=== PATIENT | female | born 1950 | race Caucasian/White ===

== ENCOUNTER 2021-04-12 16:20 | Emergency (ER) | payer MEDICARE, SELFPAY ==
[2021-04-12 16:28] VITALS: BP 180/96; PULSE 104; RESP 16; TEMP 36.4; O2SAT 100
--- NOTE | 2021-04-12 16:34 | ED.GENADULT ---
HPI - General Adult General Chief complaint: Headache Stated complaint: lt side facial numbness/elevated bp Time Seen by Provider: 04/12/21 16:36 Source: patient and RN notes reviewed Mode of arrival: ambulatory Limitations: no limitations History of Present Illness HPI narrative: 71-year-old female presents with concern for 6-day history of intractable headache, 2-day history of left-sided facial numbness and left blurry vision. She reports on Wednesday prior to her headache starting she received a cortisone shot in her left knee. Reports throughout the week at one point she had a flushed face. Reports she has been taking her blood pressure, it was elevated today. Reports she has a history of hypertension. She denies any difficulty swallowing, speaking, abnormal gait. Denies weakness in any extremity. Denies nausea or vomiting. Does not describe this headache as the worst headache of her life.. MD complaint: Facial numbness Related Data Home Medications Medication Instructions Recorded Confirmed albuterol sulfate 2 puff INHALATION PRN PRN 04/12/21 04/12/21 atorvastatin 20 mg PO DAILY 04/12/21 04/12/21 calcium carbonate [Calcium 600] 600 mg PO DAILY 04/12/21 04/12/21 carvedilol 12.5 mg PO BID 04/12/21 04/12/21 cholecalciferol (vitamin D3) 125 mcg PO WEEKLY 04/12/21 04/12/21 levothyroxine 50 mcg PO DAILY 04/12/21 04/12/21 loratadine 10 mg PO DAILY 04/12/21 04/12/21 lorazepam 0.5 mg PO PRN PRN 04/12/21 04/12/21 ej-bi-aunn-FA-Ca carb-vit K 1 tablet PO DAILY 04/12/21 04/12/21 [Women's Multivitamin] omeprazole 20 mg PO DAILY 04/12/21 04/12/21 vitamin A-vitamin C-vit E-min 1 tablet PO DAILY 04/12/21 04/12/21 [Ocuvite] vortioxetine [Trintellix] 10 mg PO DAILY 04/12/21 04/12/21 zolpidem 10 mg PO PRN PRN 04/12/21 04/12/21 Allergies Allergy/AdvReac Type Severity Reaction Status Date / Time levofloxacin Allergy Mild achilles Verified 04/12/21 16:26 tendon issues thimerosal Allergy Unknown not known Verified 04/12/21 16:26 Review of Systems Review of Systems: CONSTITUTIONAL: Denies malaise, chills, sweats, or fever. EYES: Reports left-sided blurry vision ENT: Denies rhinorrhea, congestion, sinus pain, otalgia or sore throat. CARDIOVASCULAR: Denies chest pain, palpitations, or edema. RESPIRATORY: Denies cough or dyspnea. GASTROINTESTINAL: Denies nausea, vomiting MUSCULOSKELETAL: Denies myalgia. NEUROLOGIC: Denies weakness. Reports 6-day history of headache, left-sided facial numbness PSYCHIATRIC: Denies anxiety or depression. All systems reviewed & are unremarkable except as noted in HPI and below PMFSH Comments At time of signature, agree with nursing past medical, surgical, social and family history. There is no relevant family history pertinent to the presenting complaint Exam Narrative: GENERAL: Well-appearing, well-nourished, and in no acute distress. HEAD: Normocephalic, atraumatic. EYES: PERRLA, sclera clear, and EOMI. No nystagmus. ENT: Nares clear, turbinates pink, no rhinorrhea or epistaxis. Mucous membranes moist. TM pearly jain with sharp light reflex bilaterally; no tragal tenderness. Oropharynx without erythema or lesions. Tonsils not enlarged and without exudate. NECK: Supple. No lymphadenopathy. No jugular venous distension, thyromegaly, or carotid bruits. Carotids were easily palpable bilaterally. CHEST: No respiratory distress. Clear to auscultation. No bony deformities, no asymmetry. Speaks in full sentences. HEART: Regular rate and rhythm. No murmur heard. Normal peripheral pulses. ABDOMEN: Soft, nontender, nondistended, normal active bowel sounds, no palpable masses. EXTREMITIES: Normal range of motion. No edema. Normal strength and sensation. SKIN: Warm, dry, no visible rash. NEURO: Alert and oriented x3. No focal deficits. Cranial nerves II through XII grossly intact PSYCH: Normal mood and affect Course Course Emergency Course: Patient is aware of, understands and agrees to reasons to be napoles
[2021-04-12 16:58] VITALS: BP 160/104; PULSE 80; RESP 16
--- NOTE | 2021-04-12 17:11 | PC.NURSE ---
1650 Bilateral visual chart check with glasses 20/70.
== END 2021-04-12 16:58 | disposition short-term general hospital (02) ==
PROVIDERS: Emergency Provider Nurse Practitioner; PCP Internal Medicine
DX: R20.0 Anesthesia of skin (principal); I10 Essential (primary) hypertension
CPT/HCPCS: 99213; G0463

== ENCOUNTER → 2021-09-10 14:40 | Outpatient (CLI) | payer MEDICARE, SELFPAY ==
--- NOTE | ~2021-09-10 | MM_ITS ---
EXAMINATION: MM screening [facility] BI w codie HISTORY: Screening mammogram TECHNIQUE: Craniocaudal and mediolateral oblique 3-D tomosynthesis images were obtained and synthetic 2-D images were generated. CAD analysis was submitted and interpreted. COMPARISON: 06/21/2019, 07/15/2017, 12/24/2015 bilateral screening mammogram examinations BREAST PARENCHYMAL COMPOSITION: The breasts are almost entirely fatty. FINDINGS: Scattered benign calcifications on the right are again noted. Stable benign appearing small intramammary lymph node in the outer mid left breast. There is no evidence of suspicious mass, calci fication, or architectural distortion to suggest malignancy in either breast. There has been no suspi cious interval change. IMPRESSION: 1. No mammographic evidence of malignancy. 2. Recommend routine screening mammography in one year. BI-RADS Category 2: Benign finding(s). Reviewed, dictated and finalized at location A. W
== END ==
PROVIDERS: PCP Internal Medicine; Visit Provider Internal Medicine
DX: Z12.31 Encounter for screening mammogram for malignant neoplasm of breast (principal)
CPT/HCPCS: 77063; 77067

== ENCOUNTER → 2021-10-01 13:04 | Outpatient (CLI) | payer MEDICARE, SELFPAY ==
--- NOTE | ~2021-10-01 | DEXA_ITS ---
Bone Density Report Name: BRIANNA WICK Age: 71 Sex: Female Ethnicity: White Date of : 1950 Indication: postmenopausal; screening for osteoporosis; height loss; hysterectomy; Referring Provider: PAGE, JUANCARLOS Larson Study: Bone densitometry was performed. Exam Date: October 01, 2021 Accession number: [id number] Bone Density: Region BMD T-score Z-score Classification AP Spine (L1-L4) 0.980 -0.6 1.6 Normal Femoral Neck (Left) 0.614 -2.1 -0.2 Osteopenia Total Hip (Left) 0.799 -1.2 0.4 Osteopenia Femoral Neck (Right) 0.637 -1.9 0.0 Osteopenia Total Hip (Right) 0.785 -1.3 0.3 Osteopenia Total Hip Mean 0.792 -1.3 0.4 Osteopenia World Health Organization criteria for BMD impression classify patients as: Normal (T-score at or above -1.0), Osteopenia (T-score between -1.0 and -2.5), or Osteoporosis (T-score at or below -2.5). 10-year Fracture Risk(1): Major Osteoporotic Fracture 12% Hip Fracture 2.4% Reported Risk Factors: [place] (), Neck BMD=0.614, BMI=33.4 (1) FRAX(R) Version 3.08. Fracture probability calculated for an untreated patient. Fracture probability may be lower if the patient has received treatment. Previous Exams: Region Exam Age BMD T-score BMD Change BMD Change Date g/cm2 vs Baseline vs Previous AP Spine(L1-L4) 10/01/2021 71 0.980 -0.6 -0.002 -0.002 06/21/2019 69 0.981 -0.6 Total Hip(Left) 10/01/2021 71 0.799 -1.2 -0.029* -0.029* 06/21/2019 69 0.828 -0.9 Total Hip(Right) 10/01/2021 71 0.785 -1.3 -0.031* -0.031* 06/21/2019 69 0.816 -1.0 *Denotes significance at 95% confidence level, LSC for AP Spine = 0.022 g/cm2, LSC for Total Hip = 0.027 g/cm2 Clinical Information Provided by Patient: Has used the following medications: Vitamin D, Calcium, MTV Has the following medical conditions: Hysterectomy Patient maximum height was 66.5 Menopause Age: 49 No regular weight bearing exercise Drinks caffeinated beverages Onset of menses at age 14 Number of children 3 Impression: The patient has low bone mass, based on the Left Femoral Neck T-score. The patient has an estimated ten-year risk of hip fracture of 2.4% and an estimated ten-year risk of major fracture of 12%, based on the WHO FRAX algorithm. The BMD for the Total Hip(Left) decreased, changing by -0.029 since the last DXA exam. The BMD for the Total Hip(Right) decreased, changing by -0.031 since
== END ==
PROVIDERS: PCP Internal Medicine; Visit Provider Internal Medicine
DX: M85.851 Other specified disorders of bone density and structure, right thigh (principal); M85.852 Other specified disorders of bone density and structure, left thigh
CPT/HCPCS: 77080

== ENCOUNTER → 2022-11-23 10:19 | Outpatient (CLI) | payer MEDICARE, SELFPAY ==
--- NOTE | ~2022-11-23 | MM_ITS ---
EXAMINATION: MM screening [facility] BI w codie HISTORY: Screening mammogram TECHNIQUE: Craniocaudal and mediolateral oblique 3-D tomosynthesis images were obtained and synthetic 2-D images were generated. CAD analysis was submitted and interpreted. COMPARISON: 09/10/2021, 06/21/2019, 07/15/2017 BREAST PARENCHYMAL COMPOSITION: The breasts are almost entirely fatty. FINDINGS: Scattered benign-appearing calcifications are present. A stable intramammary lymph node is also noted in the left breast. No suspicious mass, calcification, or architectural distortion are lizbeth ntified in either breast to suggest malignancy. There has been no suspicious interval change. IMPRESSION: 1. No mammographic evidence of malignancy. 2. Recommend routine screening mammography in one year. BI-RADS Category 2: Benign finding(s). Reviewed, dictated and finalized at location A.
== END ==
PROVIDERS: PCP Internal Medicine; Visit Provider Internal Medicine
DX: Z12.31 Encounter for screening mammogram for malignant neoplasm of breast (principal)
CPT/HCPCS: 77063; 77067

== ENCOUNTER 2024-04-18 13:59 | Outpatient (CLI) | payer MEDICARE, OTHER, SELFPAY ==
--- NOTE | ~2024-04-18 | MM_ITS ---
EXAMINATION: MM screening [facility] BI w codie HISTORY: Screening TECHNIQUE: Craniocaudal and mediolateral oblique 3-D tomosynthesis images were obtained and synthetic 2-D images were generated. CAD analysis was submitted and interpreted. COMPARISON: Comparison to multiple prior studies sequentially, with oldest reviewed study dated 01/2016. BREAST PARENCHYMAL COMPOSITION: Not dense: There are scattered areas of fibroglandular density. FINDINGS: There is no evidence of suspicious mass, calcification, or architectural distortion to sugg est malignancy in either breast. There has been no suspicious interval change. IMPRESSION: 1. No mammographic evidence of malignancy. 2. Recommend routine screening mammography in one year. BI-RADS Category 1: Negative Reviewed, dictated and finalized at location B.
== END 2024-04-18 14:00 | disposition home or self-care (01) ==
PROVIDERS: PCP Internal Medicine; Visit Provider Obstetrics & Gynecology
DX: Z12.31 Encounter for screening mammogram for malignant neoplasm of breast (principal)
CPT/HCPCS: 77063; 77067

== ENCOUNTER 2025-04-20 10:32 | Outpatient (CLI) | payer MEDICARE, OTHER, SELFPAY ==
--- NOTE | ~2025-04-20 | MM_ITS ---
EXAMINATION: MM screening [facility] BI w codie HISTORY: Screening TECHNIQUE: Craniocaudal and mediolateral oblique 3-D tomosynthesis images were obtained and synthetic 2-D images were generated. CAD analysis was submitted and interpreted. COMPARISON: Comparison to multiple prior studies sequentially, with oldest reviewed study dated 12/24/2015. BREAST PARENCHYMAL COMPOSITION: Not dense: There are scattered areas of fibroglandular density. FINDINGS: There is no evidence of suspicious mass, calcification, or architectural distortion to suggest malignancy in either breast. There has been no suspicious interval change. IMPRESSION: 1. No mammographic evidence of malignancy. 2. Recommend routine screening mammography in one year. BI-RADS Category 1: Negative Reviewed, dictated and finalized at location B.
== END 2025-04-20 10:33 | disposition home or self-care (01) ==
LOC: MICIMG 10:33
PROVIDERS: PCP Internal Medicine; Visit Provider Internal Medicine
DX: Z12.31 Encounter for screening mammogram for malignant neoplasm of breast (principal)
CPT/HCPCS: 77063; 77067

== ENCOUNTER 2025-07-11 11:42 | Emergency (ER) | payer MEDICARE, OTHER, SELFPAY ==
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
--- OUTSIDE RECORDS SUMMARY | 2025-07-11 11:45 | XMS_ITS | Encounter Summary ---
Author Organization [facility] Address [address] [place], [place] [address] [address] Care Team Providers Care Sas Analyst Name Role Phone Tyrone Mckeon MD Primary Care Provider [phone] Encounter Details Date Type Department Care Team (Late Contact [facility]) Description 04/09/2020 Lab Requisition [facility] Care DermPath Lab [address] [facility] [place] [phone] Gabby Ross MD [address] [facility] 3 [place] [address] Social History Tobacco Use Types Packs/Day Years Used Date Smoking Tobacco: Never Smokeless Tobacco: Never Alcohol Use Standard Drinks/Week Comments No 0 (1 standard drink = 0.6 oz pur e alcohol) Comments No Sex and Gender Information Value Date Recorded Sex Assigned at Female 07/30/2023 9:00 AM POT RUNNER Legal Sex Female 1:44 PM POT RUNNER Gender Identity Female 07/30/2023 9:00 AM POT RUNNER Sexual Orientation Not on file documented as of this encounter Plan of Treatment Not on file documented as of this encounter Procedures Procedure Name Priority Date/Time Associated Diagnosis Comments DERMATOPATHOLOGY Routine 04/08/2020 12:0 0 AM CDT documented in this encounter Results * DERMATOPATHOLOGY (04/08/2020 12:00 AM CDT) Case Report Dermatopathology Report Case: [id number] Authorizing Provider: Gabby Ross MD Collected: 04/08/2020 12:00 AM Ordering Location: [facility] DermPath Lab Received: 04/09/2020 01:14 PM Pathologist: Sara Carson MD Specimen: Skin, anterior neck 0 12:28 PM CDT DERMATOPATHOLOGY LABORATORY Final Diagnosis Specimen A. SKIN, anterior neck: VERRUCA VULGARIS, SUPERFICIAL PORTIONS OF (B07.8) 0 12:28 PM CDT DERMATOPATHOLOGY LABORATORY at 1228 CDT Clinical History ISK R/O BCC, pink papule. 0 12:28 PM CDT DERMATOPATHOLOGY LABORATORY Gross Description Specimen A: Received is one formalin filled container labeled with the patient's name and designated anterior neck. The specimen consists of a shave measuring 1x6r5nl. Jar 0. 0 12:28 PM CDT DERMATOPATHOLOGY LABORATORY Microscopic Description Specimen A. SKIN, anterior neck: Sections show papillomatosis and hypergranulosis with overlying focal parakeratosis. The base of the lesion is not visualized. 0 12:28 PM CDT DERMATOPATHOLOGY LABORATORY Disclaimer An external and internal positive and negative controls are appropriate for the histochemical, immunohistochemical and immunofluorescence stain(s) in this case (if any), except where stated explicitly. The performance characteristics of the stain(s) cited in this report were developed and its performance characteristic determined by the Dermatopathology Laboratory at [facility], directed by Dr. Maricarmen Gonzalez. These tests need not be, and therefore are not, approved by the [place] Food and Drug Administration. The tests are used for clinical purposes. Billing Codes Specimen Charges Stain Charges 89900 1 0 12:28 PM CDT DERMATOPATHOLOGY LABORATORY Embedded Images 0 12:28 PM CDT DERMATOPATHOLOGY LABORATORY Pathology/Cytolog y TISSUE SPECIMEN FROM SKIN / Unknown 04/08/2020 04/09/2020 1:14 PM CDT us Gabby Ross MD LAB - PATHOLOGY/CYTOLOGY ORD ERABLES Final Result DERMATOPATHOLOGY LABORATORY [facility] - Department of Dermatology [facility] [address] [facility], [address] [phone] documented in this encounter Visit Diagnoses Not on filedocumented in this encounter Care Teams Sas Analyst Relationship Specialty Start Date End Date Tyrone Mckeon MD PCP - General Internal Medicine 07/04/17 documented as of this encounter
--- OUTSIDE RECORDS SUMMARY | 2025-07-11 11:45 | XMS_ITS | Encounter Summary ---
Author Organization [facility] Address [address] [place], [place] [address] [address] Care Team Providers Care Management Retail Intern Name Role Phone Tyrone Mckeon MD Primary Care Provider [phone] Encounter Details Date Type Department Care Team (Late Contact [facility]) Description 03/30/2018 Lab Requisition [facility] Care DermPath Lab [address] [facility], [place] [phone] Gabby Ross MD [address] [facility] [address] [place] [address] Social History Tobacco Use Types Packs/Day Years Used Date Smoking Tobacco: Never Smokeless Tobacco: Never Alcohol Use Standard Drinks/Week Comments No 0 (1 standard drink = 0.6 oz pur e alcohol) Comments No Sex and Gender Information Value Date Recorded Sex Assigned at Female 07/30/2023 9:00 AM STUDENT SERVICES REP Legal Sex Female 1:44 PM STUDENT SERVICES REP Gender Identity Female 07/30/2023 9:00 AM STUDENT SERVICES REP Sexual Orientation Not on file documented as of this encounter Plan of Treatment Not on file documented as of this encounter Procedures Procedure Name Priority Date/Time Associated Diagnosis Comments DERMATOPATH TECHNICAL REPORT Routine 03/29/2018 12:00 AM CDT documented in this encounter Results * DERMATOPATH TECHNICAL REPORT (03/29/2018 12:00 AM CDT) Case Report Dermatopathology Report Case: [id number] Authorizing Provider: Gabby Ross MD Collected: 03/29/2018 12:00 AM Pathologist: Mansi Joaquin MD Received: 03/30/2018 06:34 AM Specimen: Skin, upper back 2:41 PM T DERMATOPATHOLOGY LABORATORY Addendum 1 At the request of the diagnosing physician, the technical component for MART-1/Melan A was performed on block A5 by [facility] Dermatopathology Laboratory. 2:41 PM T DERMATOPATHOLOGY LABORATORY Addendum electronically signed by Mansi Joaquin MD on 04/01/2018 at 1441 CDT Clinical History Bx proven BCC. Check margins. Previous Bx: [id number]. 2:41 PM T DERMATOPATHOLOGY LABORATORY Gross Description Specimen A: Received is one formalin filled container labeled with the patient's name and designated upper back.The specimen consists of an ellipse measuring [id number] and is oriented with the notch at the 3 o'clock position, not labeled on the requisition. The epidermal surface consists of a centrally located 7x8mm previous biopsy site. The 12 to 6 o'clock margin is inked green. The 6 o'clock to 12 o'clock margin is inked black. The 12 o'clock tip is submitted in cassette 1. The 6 o'clock tip is submitted in cassette 2. The remainder of the ellipse is serially sectioned and submitted in cassettes 3-5. Jar 0. [facility] Dermatopathology Laboratory performed the technical component only. 2:41 PM T DERMATOPATHOLOGY LABORATORY Embedded Images 2:41 PM [facility] DERMATOPATHOLOGY LABORATORY DISCLAIMER An external and internal positive and negative controls are appropriate for the histochemical, immunohistochemical and immunofluorescence stain(s) in this case (if any), except where stated explicitly. The performance characteristics of the stain(s) cited in this report were developed and its performance characteristic determined by the Dermatopathology Laboratory at [facility]. These tests need not be, and therefore are not, approved by the [place] Food and Drug Administration. The tests are used for clinical purposes. 2:41 PM [facility] DERMATOPATHOLOGY LABORATORY at 1135 CDT Pathology/Cytolog y TISSUE SPECIMEN FROM SKIN / Unknown 03/29/2018 03/30/2018 6:34 AM CDT us Gabby Ross MD LAB - PATHOLOGY/CYTOLOGY ORD ERABLES Edited Result - Final DERMATOPATHOLOGY LABORATORY [facility] - Department of Dermatology [address] [place] [address], 5th Floor Lab [address] [phone] documented in this encounter Visit Diagnoses Not on filedocumented in this encounter Care Teams Management Retail Intern Relationship Specialty Start Date End Date Tyrone Mckeon MD PCP - General Internal Medicine 07/04/17 documented as of this encounter
--- OUTSIDE RECORDS SUMMARY | 2025-07-11 11:45 | XMS_ITS | Encounter Summary ---
Author Organization [facility] Address [address] [place], [place] [address] [address] Care Team Providers Care Photocopying Machine Operator Name Role Phone Tyrone Mckeon MD Primary Care Provider [phone] Encounter Details Date Type Department Care Team (Late [facility]) Description 02/18/2018 Lab Requisition [facility] Care DermPath Lab [address] [facility], [place] [phone] Gabby Ross MD [address] [facility] 3 [place] [address] Social History Tobacco Use Types Packs/Day Years Used Date Smoking Tobacco: Never Smokeless Tobacco: Never Alcohol Use Standard Drinks/Week Comments No 0 (1 standard drink = 0.6 oz pur e alcohol) Comments No Sex and Gender Information Value Date Recorded Sex Assigned at Female 07/30/2023 9:00 AM WOOL GROWER Legal Sex Female 1:44 PM WOOL GROWER Gender Identity Female 07/30/2023 9:00 AM WOOL GROWER Sexual Orientation Not on file documented as of this encounter Plan of Treatment Not on file documented as of this encounter Procedures Procedure Name Priority Date/Time Associated Diagnosis Comments DERMATOPATH TECHNICAL REPORT Routine 02/17/2018 12:00 AM CDT documented in this encounter Results * DERMATOPATH TECHNICAL REPORT (02/17/2018 12:00 AM CDT) Case Report Dermatopathology Report Case: [id number] Authorizing Provider: Gabby Ross MD Collected: 02/17/2018 12:00 AM Pathologist: Mansi Joaquin MD Received: 02/18/2018 06:58 AM Specimen: Skin, upper back 11:08 AM CDT DERMATOPATHOLOGY LABORATORY Clinical History BCC vs bite, eroded papule. Check margins. 11:08 AM CDT DERMATOPATHOLOGY LABORATORY Gross Description Specimen A: Received is one formalin filled container labeled with the patient's name and designated upper back. The specimen consists of a shave biopsy measuring 8x7x1 mm. Jar 0. [facility] Dermatopathology Laboratory performed the technical component only. 11:08 AM CDT DERMATOPATHOLOGY LABORATORY Embedded Images 11:08 AM T DERMATOPATHOLOGY LABORATORY DISCLAIMER An external and internal positive and negative controls are appropriate for the histochemical, immunohistochemical and immunofluorescence stain(s) in this case (if any), except where stated explicitly. The performance characteristics of the stain(s) cited in this report were developed and its performance characteristic determined by the Dermatopathology Laboratory at [facility]. These tests need not be, and therefore are not, approved by the [place] Food and Drug Administration. The tests are used for clinical purposes. 11:08 AM [facility] DERMATOPATHOLOGY LABORATORY at 1108 CDT Pathology/Cytolog y TISSUE SPECIMEN FROM SKIN / Unknown 02/17/2018 02/18/2018 6:58 AM CDT us Gabby Ross MD LAB - PATHOLOGY/CYTOLOGY ORD ERABLES Final Result DERMATOPATHOLOGY LABORATORY [facility] - Department of Dermatology [address] [place] [address], 5th [place] [address], [facility] [phone] documented in this encounter Visit Diagnoses Not on filedocumented in this encounter Care Teams Photocopying Machine Operator Relationship Specialty Start Date End Date Tyrone Mckeon MD PCP - General Internal Medicine 07/04/17 documented as of this encounter
--- OUTSIDE RECORDS SUMMARY | 2025-07-11 11:45 | XMS_ITS | Encounter Summary ---
Author Organization [facility] Address [address] [place], [place] [address]As[place] [address] Care Team Providers Care Leak Detector Name Role Phone Tyrone Mckeon MD Primary Care Provider [phone] Encounter Details Date Type Department Care Team (Late Contact [facility]) Description 02/23/2019 Lab Requisition [facility] Care DermPath Lab [address] [facility] [place] [id number] Gabby Ross MD [address] [facility] [address] [place] [address] Social History Tobacco Use Types Packs/Day Years Used Date Smoking Tobacco: Never Smokeless Tobacco: Never Alcohol Use Standard Drinks/Week Comments No 0 (1 standard drink = 0.6 oz pur e alcohol) Comments No Sex and Gender Information Value Date Recorded Sex Assigned at Female 07/30/2023 9:00 AM HEALTH CLAIMS EXAMINER Legal Sex Female 1:44 PM HEALTH CLAIMS EXAMINER Gender Identity Female 07/30/2023 9:00 AM HEALTH CLAIMS EXAMINER Sexual Orientation Not on file documented as of this encounter Plan of Treatment Not on file documented as of this encounter Procedures Procedure Name Priority Date/Time Associated Diagnosis Comments DERMATOPATHOLOGY Routine 02/22/2019 12:0 0 AM CDT documented in this encounter Results * DERMATOPATHOLOGY (02/22/2019 12:00 AM CDT) Case Report Dermatopathology Report Case: [id number] Authorizing Provider: Gabby Ross MD Collected: 02/22/2019 12:00 AM Pathologist: Sara Carson MD Received: 02/23/2019 06:37 AM Specimen: Skin, mid back 1:15 PM CDT DERMATOPATHOLOGY LABORATORY Final Diagnosis Specimen A. 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 Brown papule. 1:15 PM CDT DERMATOPATHOLOGY LABORATORY Gross Description Specimen A: Received is one formalin filled container labeled with the patient's name and designated mid back. The specimen consists of a shave measuring 50e5x2mg. Jar 0. 1:15 PM CDT DERMATOPATHOLOGY LABORATORY Microscopic Description Specimen A. SKIN, mid back: This is a compound nevus. There is architectural disorder characterized by a lentiginous proliferation of melanocytes between irregular nevus nests of cells along the dermal-epidermal junction. There is underlying lamellar fibroplasia of the papillary dermis. The intradermal component is bland in appearance and matures with depth. (Compound Jose's Nevus or Compound Dysplastic Nevus) Sections show a perifollicular lymphohistiocytic infiltrate. 1:15 PM CDT DERMATOPATHOLOGY LABORATORY Disclaimer An external and internal positive and negative controls are appropriate for the histochemical, immunohistochemical and immunofluorescence stain(s) in this case (if any), except where stated explicitly. The performance characteristics of the stain(s) cited in this report were developed and its performance characteristic determined by the Dermatopathology Laboratory at [facility], directed by Dr. Maricarmen Gonzalez. These tests need not be, and therefore are not, approved by the [place] Food and Drug Administration. The tests are used for clinical purposes. Billing Codes Specimen Charges Stain Charges 58053 1 1:15 PM CDT DERMATOPATHOLOGY LABORATORY Embedded Images 1:15 PM CDT DERMATOPATHOLOGY LABORATORY Pathology/Cytolog y TISSUE SPECIMEN FROM SKIN / Unknown 02/22/2019 02/23/2019 6:37 AM CDT Gabby Ross MD LAB - PATHOLOGY/CYTOLOGY ORD ERABLES Final Result DERMATOPATHOLOGY LABORATORY [facility] - Department of Dermatology [address] [place] [address], 5th Floor Lab [address] [phone] documented in this encounter Visit Diagnoses Not on filedocumented in this encounter Care Teams Leak Detector Relationship Specialty Start Date End Date Tyrone Mckeon MD PCP - General Internal Medicine 07/04/17 documented as of this encounter
[2025-07-11 11:50] VITALS: BP 146/87; PULSE 88; RESP 14; TEMP 36.4; O2SAT 100
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
[2025-07-11 13:28] LABS: Hematocrit 39.6 % (37.0-47.0); Hemoglobin 13.1 g/dL (12.0-15.0); Immature Granulocyte Percent A 0.7 % (0-0.5); Lymphocytes Absolute Auto 1.23 K/mm3 (0.9-3.2); Mean Corpuscular HGB Conc 33.1 g/dl (32-36); Mean Corpuscular Hemoglobin 29.8 pg (26-34); Mean Corpuscular Volume 90.2 fl (80-100); Nucleated Red Blood Cells Absolute Auto 0.000 K/mm3 (0.0-0.012); Nucleated Red Blood Cells Perc 0.0 % (0.0-0.2); Platelet Count Result 304 k/mm3 (150-375); Red Blood Count 4.39 M/mm3 (4.2-5.4); White Blood Count 13.0 K/mm3 (4.5-10.0)
[2025-07-11 13:42] LABS: Add Urine Microscopic? YES; Appearance Urine Clear (Clear); Glucose Urine UA Negative (Negative); Leukocyte Esterase Ur 1+ LEU/UL (Negative); Need Manual Microscopic Reviewed; Nitrate Urine Negative (Negative); Non Pathogenic Casts 0-2; Specific Grav Ur 1.006 (1.001-1.035)
[2025-07-11 13:49] LABS: Alanine Aminotransferase 23 U/L (6-35); Albumin Level 4.6 g/dL (3.5-5.1); Alkaline Phosphatase 106 U/L (38-126); Anion Gap 8 mmol/L (4-12); Aspartate Amino Transferase 41 U/L (14-36); Bilirubin,Total 0.5 mg/dL (0.2-1.3); Blood Urea Nitrogen 9 mg/dL (7-17); Calcium 9.2 mg/dL (8.4-10.2); Carbon Dioxide 26 mmol/L (22-30); Chloride 104 mmol/L (98-107); Estimated CRCL calculation 45 ml/min; Estimated Glomerular Filt Rate > 60; Glucose 98 mg/dL (65-110); Lipase 140 U/L (23-300); Potassium 3.9 mmol/L (3.4-5.0); Sodium 138 mmol/L (137-145); Total Protein 8.2 g/dL (6.3-8.2)
[2025-07-11 14:20] VITALS: BP 134/79; PULSE 84; RESP 16; O2SAT 100
== END 2025-07-11 14:22 | disposition home or self-care (01) ==
PROVIDERS: Emergency Provider Emergency Medicine; PCP Internal Medicine
DX: R07.89 Other chest pain (principal); R16.0 Hepatomegaly, not elsewhere classified; V03.00XA Pedestrian on foot injured in collision with car, pick-up truck or van in nontraffic accident, initial encounter; I10 Essential (primary) hypertension; R82.90 Unspecified abnormal findings in urine
CPT/HCPCS: 36415; 70450; 71250; 72125; 73110; 74176; 80053; 81001; 83690; 85025; 87086; 99284